=== PATIENT | female | born 1985 | race Caucasian/White ===

== ENCOUNTER 2017-12-11 18:40 | Emergency (ER) | payer OTHER ==
[~2017-12-11] VITALS: Ht 160 cm; Wt 74.8 kg
[2017-12-11] MEDS ORDERED: AMPHETAMINE SA7.5 MG PO (19:04)
[2017-12-11] MEDS ORDERED: AMPHETAMINE SAL10 MG PO (19:05)
[2017-12-11] MEDS ORDERED: NORCO 5-325 TA1 EAC1 PO (19:58)
[2017-12-11 20:27] VITALS: BP 112/71
== END 2017-12-11 20:28 | disposition home or self-care (01) ==
LOC: M.ERS 18:40
DX: S62.603A Fracture of unspecified phalanx of left middle finger, initial encounter for closed fracture (principal); S61.213A Laceration without foreign body of left middle finger without damage to nail, initial encounter; S61.211A Laceration without foreign body of left index finger without damage to nail, initial encounter; X50.9XXA Other and unspecified overexertion or strenuous movements or postures, initial encounter; Y93.89 Activity, other specified; Y92.89 Other specified places as the place of occurrence of the external cause; Y99.8 Other external cause status

== ENCOUNTER 2018-03-13 19:03 | Emergency (ER) | payer OTHER ==
[~2018-03-13] VITALS: Ht 160 cm; Wt 74.8 kg
[~2018-03-13 19:03] MED LIST: AMPHETAMINE SA7.5 MG PO; AMPHETAMINE SAL10 MG PO; NORCO 5-325 TA1 EAC1 PO
[2018-03-13] MEDS ORDERED: ROBAXIN 750 MG750 M1 PO (20:17)
[2018-03-13 20:28] VITALS: BP 105/65
== END 2018-03-13 20:29 | disposition home or self-care (01) ==
LOC: M.ERS 19:03
DX: M54.6 Pain in thoracic spine (principal); R51 Headache; V89.0XXA Person injured in unspecified motor-vehicle accident, nontraffic, initial encounter; Y93.89 Activity, other specified; Y92.89 Other specified places as the place of occurrence of the external cause; Y99.8 Other external cause status